=== PATIENT | male | born 1995 | race Caucasian/White ===

== ENCOUNTER → 2025-01-04 08:03 | Outpatient (CLI) | payer OTHER, SELFPAY ==
--- NOTE | 2025-01-04 08:05 | DI.MRI.S_ITS ---
PROCEDURE: MR WRIST RT WO CON INDICATIONS: hx of rt wrist pain to radiocarpal join line TECHNIQUE: Noncontrast coronal proton density fast spin echo and T2 fast spin echo with fat saturation; coronal 3-D gradient echo, axial T1 spin echo and T2 fast spin echo with fat saturation, sagittal T1 spin echo through the wrist. COMPARISON: None. FINDINGS: Image quality: Excellent. Bones and cartilage: The carpal bones are normally aligned. There is mild marrow edema involving dorsal aspect of trapezoid, distal hamate and capitate without discrete fracture line. Mild edema involving distal portion of triquetrum adjacent to its articulation with hamate is also seen. There is also very mild edema involving distal radius. No discrete fracture line. Articulating cartilages normal in thickness. No evidence of avascular necrosis. Carpal ligaments: The scapholunate and lunotriquetral ligaments appear intact. In the absence of intra-articular contrast, the extrinsic carpal ligaments are not well identified. On sagittal images, the pisohamate ligament appears intact. Triangular fibrocartilage complex: Subtle signal abnormality involving triangular fibrocartilage near its ulnar insertion, subtle TFC tear cannot be excluded. Thickened extensor carpi ulnaris tendon at the level of distal ulnar and ulnar styloid is seen with subtle intrasubstance T2 hyperintense signal. Tendons and soft tissues: The carpal tunnel structures appear normal, including the median nerve. The ulnar nerve appears normal within Guyon's canal. Mildly thickened extensor pollicis brevis and abductor pollicis longus tendons at the level of distal radius and radial styloid is seen. Rest of the extensor tendons are intact. No soft tissue ganglion cysts. IMPRESSION: 1. Suggestion of mild bony contusion involving distal radius and multiple carpal bones as above. No acute fracture or dislocation. No evidence of avascular necrosis. 2. Finding is concerning for subtle TFC tear near its ulnar insertion. 3. Tendinosis and low-grade intrasubstance partial-thickness tear involving extensor carpi ulnaris tendon at the level of distal ulnar and ulnar styloid. Mild tendinosis also seen involving 1st extensor compartment at the level of radial styloid. 4. Rest of the extensor and flexor tendons are intact. Scapholunate and lunotriquetral ligaments are intact. Dictated by: Angel Fong M.D. on 01/05/2025 at 10:48 Approved by: Angel Fong M.D. on 01/05/2025 at 10:53
== END ==
PROVIDERS: PCP Student in an Organized Health Care Education/Training Program; Referring Provider Student in an Organized Health Care Education/Training Program; Visit Provider Student in an Organized Health Care Education/Training Program
DX: M25.531 Pain in right wrist (principal); S66.811A Strain of other specified muscles, fascia and tendons at wrist and hand level, right hand, initial encounter
CPT/HCPCS: 73221